=== PATIENT | male | born 1950 | race Two or more races ===

== ENCOUNTER 2021-08-09 05:16 | Day surgery (SDC) | payer OTHER ==
[~2021-08-09 05:16] MED LIST: ALBUTERO IH; B COMPLEX1 EAC1 PO; COZAAR100 MG PO; CRESTOR40 MG PO; FOLIC A PO; GLIPIZIDE XL10 MG PO; TOPROL XL100 M1 PO; [UNRECOGNIZED DRUG - OTHER]
[2021-08-09] MEDS ORDERED: PERCOCET 5-3251 EACH PO (11:19)
== END 2021-08-09 16:20 | disposition home or self-care (01) ==
LOC: CIR.AMB 05:16
PROVIDERS: ATTEND Surgery
DX: D35.1 Benign neoplasm of parathyroid gland (principal); E21.0 Primary hyperparathyroidism; I10 Essential (primary) hypertension; E78.5 Hyperlipidemia, unspecified; J45.909 Unspecified asthma, uncomplicated; J44.9 Chronic obstructive pulmonary disease, unspecified; Z87.891 Personal history of nicotine dependence; E83.52 Hypercalcemia

== ENCOUNTER 2022-08-15 05:15 | Day surgery (SDC) | payer OTHER ==
[~2022-08-15 05:15] MED LIST changes: +AMLODIPINE BESYL5 MG PO; +DALIRESP500 MCG PO; +FERROCITE324 MG PO; +PERCOCET 5-3251 EACH PO; +XIGDUO XR 10 M1 EAC1 PO
[2022-08-15] MEDS ORDERED: PERCOCET 5-3251 EACH PO (08:52)
== END 2022-08-15 12:40 | disposition home or self-care (01) ==
LOC: CIR.AMB 05:15
PROVIDERS: ATTEND Surgery
DX: E21.0 Primary hyperparathyroidism (principal); Z20.822 Contact with and (suspected) exposure to COVID-19; I10 Essential (primary) hypertension; E78.00 Pure hypercholesterolemia, unspecified; E11.9 Type 2 diabetes mellitus without complications; F17.210 Nicotine dependence, cigarettes, uncomplicated; Z79.84 Long term (current) use of oral hypoglycemic drugs